=== PATIENT | female | born 1955 | race Caucasian/White ===

== ENCOUNTER → 2016-10-12 | Outpatient (CLI) | payer BC ==
[2016-10-12 12:37] VITALS: BP 119/77; PULSE 70; RESP 20; TEMP 98.7; BMI 37.6
--- NOTE | 2016-10-12 12:54 | P.BASOAP ---
Subjective Principal diagnosis: Morbid obesity Patient has had poor follow-up. Initially her lap band was placed in 2002. She believes she had up to 2-3 mL of fluid at one point. She moved to [place] shortly after her surgery and had most for follow-up performed in [place]. Her band has been emptied for the last 5 years or so. Despite that the patient was able to maintain her weight in the 180 range. Recently she has had some weight gain and is currently at 33. She states this is related to increased candy. She does still feel restricted. She says she is only able to eat 3-4 bites per meal. Lately she has also had some pain at her port site and was concerned about a possible port related complication. No fevers or chills. No significant vomiting. Objective - Vital Signs Vital signs: Vital Signs Temp 98.7 F 10/12/16 12:29 Pulse 70 10/12/16 12:29 Resp 20 10/12/16 12:29 BP 119/77 10/12/16 12:29 Pulse Ox Intake & Output 10/11/16 10/12/16 10/12/16 18:59 06:59 18:59 Weight 105.732 kg - Exam Abdomen: Soft, nondistended, minimal tenderness at port site, port palpably without abnormalities Assessment/Plan (1) Morbid obesity Narrative/Plan: Will check barium swallow at this time. No adjustment planned at this time. Patient follow-up with me in 1 month. Plan: Date: 10/12/16 Initial Weight: 105.732 kg Initial BMI: 37.6 Current Weight: 105.732 kg Current BMI: 37.6 Type of Surgery: Total Volume in Band: Previous Volume: 0 Volume Removed: Volume Added: Band Size:
--- NOTE | 2016-10-12 14:10 | FL ---
EXAMINATION TYPE: FL barium swallow DATE OF EXAM ORDERED: 10/12/2016 1:53 PM HISTORY: Left-sided abdominal pain. COMPARISON: None. 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 There is a right S-shaped scoli osis convex to the left in the thoracic region and to the right in the lumbar region. There is been a previous interpedicular fusion at L3 and L4. The patient drank barium of these. There was prompt egress of the barium from the esophagus through t he lap band into the stomach. There was mild holdup. There is no evidence of prolapse. IMPRESSION: STATUS POST LAP BAND.
== END | disposition home or self-care (01) ==
LOC: BARWHC3 12:03
PROVIDERS: ATTEND Surgery
DX: E66.01 Morbid (severe) obesity due to excess calories (principal); R13.10 Dysphagia, unspecified; Z68.37 Body mass index [BMI] 37.0-37.9, adult; Z98.84 Bariatric surgery status
CPT/HCPCS: 74220; 99211